=== PATIENT | male | born 1955 | race Two or more races ===

== ENCOUNTER 2021-05-03 13:01 | Emergency (ER) | payer OTHER ==
[~2021-05-03] VITALS: Ht 165.1 cm; Wt 90.7 kg
[2021-05-03] MEDS ORDERED: DOCUSATE SOD 100 MG CAP PO ONE (13:15)
[2021-05-03 14:15] LABS: Basophils # (auto) 0.3 10 ^3/uL (0-0.2); Eosinophils # (auto) 0.3 10 ^3/uL (0-0.8); Mean Corpuscular Hemoglobin 24.8 pg (28.0-32.0); Mean Corpuscular Hgb Conc. 31.6 g/dL (32.0-36.0); Nucleated Red Blood Cells % 0.1 %
[2021-05-03 14:16] LABS: Basophils % (auto) 2.2 % (0.0-2.0); Eosinophils % (auto) 2.7 % (0.0-7.0); Hematocrit 30.6 % (41.0-53.0); Hemoglobin 9.7 g/dL (13.5-17.5); Lymphocytes % (auto) 26.2 % (10.0-50.0); Mean Corpuscular Volume 78.6 fL (80.0-100.0); Monocytes # (auto) 0.9 10 ^3/uL (0-1.3); Monocytes % (auto) 7.8 % (0.0-12.0); Neutrophils % (auto) 61.1 % (37.0-80.0); Red Cell Distribution Width 17.3 % (11.8-14.3); White Blood Cell 11.4 10^3/uL (4.4-10.8)
[2021-05-03 14:29] LABS: Albumin 2.9 g/dL (3.4-5.0); BUN/Creatinine Ratio 24.4; Calcium 8.3 mg/dL (8.5-10.1); Potassium 3.9 mmol/L (3.5-5.1)
[2021-05-03 14:34] LABS: Bilirubin, Total 0.1 mg/dL (0.2-1.0); Total Protein 6.3 g/dL (6.4-8.2)
[2021-05-03 14:58] LABS: Urine Amorphous Crystal FEW /hpf (None Seen); Urine Bacteria NONE SEEN /hpf (None Seen); Urine Blood Negative /uL (Negative); Urine Specific Gravity 1.021 (1.001-1.035); Urine WBC 1 /hpf (0 - 3)
[2021-05-03 15:53] VITALS: BP 135/65
== END 2021-05-03 15:22 | disposition home or self-care (01) ==
LOC: ER 13:01
DX: R10.9 Unspecified abdominal pain (principal)
CPT/HCPCS: 36415; 74176; 80053; 81001; 84484; 85025

== ENCOUNTER → 2021-08-13 | Outpatient (CLI) | payer OTHER ==
[2021-08-13 10:00] LABS: BUN/Creatinine Ratio 10.9; Calcium 9.2 mg/dL (8.5-10.1); Potassium 3.1 mmol/L (3.5-5.1)
== END | disposition home or self-care (01) ==
LOC: LAB 09:11
PROVIDERS: ATTEND Internal Medicine
DX: E87.6 Hypokalemia (principal)
CPT/HCPCS: 36415; 80048

== ENCOUNTER → 2021-08-26 | Outpatient (CLI) | payer OTHER ==
[2021-08-26 10:38] LABS: Basophils # (auto) 0.1 10 ^3/uL (0-0.2); Eosinophils # (auto) 0.5 10 ^3/uL (0-0.8); Nucleated Red Blood Cells % 0.1 %; White Blood Cell 6.2 10^3/uL (4.4-10.8)
[2021-08-26 10:41] LABS: Basophils % (auto) 1.2 % (0.0-2.0); Eosinophils % (auto) 7.6 % (0.0-7.0); Hematocrit 35.1 % (41.0-53.0); Hemoglobin 10.8 g/dL (13.5-17.5); Lymphocytes # (auto) 2.6 10 ^3/uL (0.4-5.4); Lymphocytes % (auto) 40.9 % (10.0-50.0); Mean Corpuscular Hemoglobin 24.7 pg (28.0-32.0); Mean Corpuscular Hgb Conc. 30.6 g/dL (32.0-36.0); Mean Corpuscular Volume 80.6 fL (80.0-100.0); Monocytes # (auto) 0.9 10 ^3/uL (0-1.3); Monocytes % (auto) 15.1 % (0.0-12.0); Neutrophils # (auto) 2.2 10 ^3/uL (1.6-8.6); Neutrophils % (auto) 35.2 % (37.0-80.0); Red Blood Cells 4.36 10^6/uL (4.5-5.90); Red Cell Distribution Width 24.6 % (11.8-14.3)
[2021-08-26 11:10] LABS: Albumin 3.3 g/dL (3.4-5.0); Bilirubin, Direct 0.1 mg/dL (0-0.2); Bilirubin, Total 0.4 mg/dL (0.2-1.0); Total Protein 7.5 g/dL (6.4-8.2)
== END | disposition home or self-care (01) ==
LOC: LAB 09:18
PROVIDERS: ATTEND Internal Medicine
DX: D64.9 Anemia, unspecified (principal); E11.9 Type 2 diabetes mellitus without complications; E87.4 Mixed disorder of acid-base balance; N40.0 Benign prostatic hyperplasia without lower urinary tract symptoms; E78.5 Hyperlipidemia, unspecified; I10 Essential (primary) hypertension
CPT/HCPCS: 36415; 80076; 82043; 84443; 85025

== ENCOUNTER → 2021-11-17 | Outpatient (CLI) | payer OTHER | END | disposition home or self-care (01) | LOC: LAB 07:50 | PROVIDERS: ATTEND Internal Medicine | DX: E11.9 Type 2 diabetes mellitus without complications (principal); D64.9 Anemia, unspecified; M17.12 Unilateral primary osteoarthritis, left knee | CPT/HCPCS: 36415; 83036; 84443; 84550; 85652; 86038; 86431 ==

== ENCOUNTER → 2022-01-14 | Day surgery (SDC) | payer OTHER, MEDICAID ==
[~2022-01-14] VITALS: Ht 165.1 cm; Wt 81.6 kg
[~2022-01-14] MED LIST: CALC667C5 GT; ENAL5TAB10 PO; FERRPOW47 XX; FURO1TAB33 PO; GLUC1CAP12 PO; LEV50T PO; LIDOCAINE VISCOUS 2% 15ML UD ONE; MIDAZOLAM HCL 5 MG/ML-1ML VIAL ONE; PANT40T PO; TAMS0.4C36 PO; VALS40TA2 PO; fentaNYL CITRATE 100 MCG/2 ML VL ONE
[2022-01-14] MEDS: diphenhdrAMINE HCL 50 MG/1 ML VL ONE ×2 (10:46→10:48)
[2022-01-14 11:40] VITALS: BP 115/57
== END | disposition home or self-care (01) ==
LOC: GI 09:10
PROVIDERS: ATTEND Internal Medicine Gastroenterology
DX: D64.9 Anemia, unspecified (principal); K44.9 Diaphragmatic hernia without obstruction or gangrene; K29.50 Unspecified chronic gastritis without bleeding; K31.89 Other diseases of stomach and duodenum; E11.9 Type 2 diabetes mellitus without complications; E03.9 Hypothyroidism, unspecified; Z79.890 Hormone replacement therapy; Z79.84 Long term (current) use of oral hypoglycemic drugs
CPT/HCPCS: 43239; 82962; 88305; 88342; J1200; J2250; J3010; J7030

== ENCOUNTER 2022-01-19 12:10 | Day surgery (SDC) | payer OTHER, MEDICAID ==
[2022-01-12 11:17] LABS: Basophils # (auto) 0 10 ^3/uL (0-0.2); Basophils % (auto) 0.9 % (0.0-2.0); Eosinophils # (auto) 0.2 10 ^3/uL (0-0.8); Eosinophils % (auto) 4.3 % (0.0-7.0); Hematocrit 37.7 % (41.0-53.0); Hemoglobin 12.7 g/dL (13.5-17.5); Lymphocytes # (auto) 2.3 10 ^3/uL (0.4-5.4); Lymphocytes % (auto) 41.3 % (10.0-50.0); Mean Corpuscular Hemoglobin 29.4 pg (28.0-32.0); Mean Corpuscular Hgb Conc. 33.6 g/dL (32.0-36.0); Mean Corpuscular Volume 87.6 fL (80.0-100.0); Monocytes # (auto) 0.4 10 ^3/uL (0-1.3); Monocytes % (auto) 7.8 % (0.0-12.0); Neutrophils # (auto) 2.5 10 ^3/uL (1.6-8.6); Neutrophils % (auto) 45.7 % (37.0-80.0); Nucleated Red Blood Cells % 0.2 %; Red Blood Cells 4.31 10^6/uL (4.5-5.90); Red Cell Distribution Width 13.9 % (11.8-14.3); White Blood Cell 5.5 10^3/uL (4.4-10.8)
[2022-01-12 11:28] LABS: INR 1.05 (0.9-1.15); Partial Thromboplastin Time 28.4 sec (24.6-33.4)
[2022-01-12 11:36] LABS: Albumin 3.5 g/dL (3.4-5.0); BUN/Creatinine Ratio 21.6; Bilirubin, Total 0.3 mg/dL (0.2-1.0); Calcium 8.9 mg/dL (8.5-10.1); Potassium 4.1 mmol/L (3.5-5.1); Total Protein 7.3 g/dL (6.4-8.2)
[~2022-01-19] VITALS: Ht 165.1 cm; Wt 81.6 kg
[~2022-01-19 12:10] MED LIST changes: -LIDOCAINE VISCOUS 2% 15ML UD ONE; -MIDAZOLAM HCL 5 MG/ML-1ML VIAL ONE; -fentaNYL CITRATE 100 MCG/2 ML VL ONE
[2022-01-19] MEDS ORDERED: MIDAZOLAM HCL 5 MG/ML-1ML VIAL ONE (12:21)
[2022-01-19] MEDS ORDERED: diphenhdrAMINE HCL 50 MG/1 ML VL ONE (12:21)
[2022-01-19] MEDS ORDERED: SODIUM CHLORIDE LOCK 10 ML ONE (12:21)
[2022-01-19] MEDS ORDERED: fentaNYL CITRATE 100 MCG/2 ML VL ONE (12:22)
[2022-01-19 14:24] VITALS: BP 101/47
== END 2022-01-19 14:31 | disposition home or self-care (01) ==
LOC: GI 12:10
PROVIDERS: ATTEND Internal Medicine Gastroenterology
DX: K59.00 Constipation, unspecified (principal); D64.9 Anemia, unspecified; K63.5 Polyp of colon; K64.0 First degree hemorrhoids; Z20.822 Contact with and (suspected) exposure to COVID-19; I10 Essential (primary) hypertension; E11.9 Type 2 diabetes mellitus without complications; Z79.899 Other long term (current) drug therapy; Z79.84 Long term (current) use of oral hypoglycemic drugs
CPT/HCPCS: 36415; 45385; 80053; 82962; 85025; 85610; 85730; J1200; J2250; J3010; J7030; U0003; 99152; 99153

== ENCOUNTER → 2022-01-24 | Outpatient (CLI) | payer OTHER, MEDICAID | END | disposition home or self-care (01) | LOC: LAB 07:42 | PROVIDERS: ATTEND Internal Medicine | DX: E03.9 Hypothyroidism, unspecified (principal) | CPT/HCPCS: 36415; 84443 ==

== ENCOUNTER → 2022-07-26 | Outpatient (CLI) | payer OTHER ==
[~2022-07-26] MED LIST changes: -ENAL5TAB10 PO; +ENAL5TAB22 PO
== END | disposition home or self-care (01) ==
LOC: LAB 07:39
PROVIDERS: ATTEND Internal Medicine
DX: E11.9 Type 2 diabetes mellitus without complications (principal); E03.9 Hypothyroidism, unspecified
CPT/HCPCS: 36415; 83036; 84443

== ENCOUNTER 2022-08-24 13:45 | Inpatient (IN) | payer OTHER, MEDICAID ==
[~2022-08-24] VITALS: Ht 165.1 cm; Wt 86.3 kg
[2022-08-24] MEDS ORDERED: SODIUM CHLORIDE 0.9% 1,000 ML IV ONE (14:00)
[2022-08-24 14:48] LABS: Basophils # (auto) 0.1 10 ^3/uL (0-0.2); Basophils % (auto) 0.4 % (0.0-2.0); Eosinophils # (auto) 0.2 10 ^3/uL (0-0.8); Eosinophils % (auto) 1.5 % (0.0-7.0); Hematocrit 44.1 % (41.0-53.0); Hemoglobin 14.3 g/dL (13.5-17.5); Lymphocytes # (auto) 2.2 10 ^3/uL (0.4-5.4); Lymphocytes % (auto) 15.2 % (10.0-50.0); Mean Corpuscular Hemoglobin 30.7 pg (28.0-32.0); Mean Corpuscular Hgb Conc. 32.5 g/dL (32.0-36.0); Mean Corpuscular Volume 94.3 fL (80.0-100.0); Monocytes # (auto) 1.1 10 ^3/uL (0-1.3); Monocytes % (auto) 7.9 % (0.0-12.0); Neutrophils # (auto) 10.6 10 ^3/uL (1.6-8.6); Nucleated Red Blood Cells % 0.2 %; Red Blood Cells 4.68 10^6/uL (4.5-5.90); Red Cell Distribution Width 13.9 % (11.8-14.3); White Blood Cell 14.2 10^3/uL (4.4-10.8)
[2022-08-24 15:00] LABS: INR 1.23 (0.9-1.15); Partial Thromboplastin Time 28.6 SEC (24.5-34.5)
[2022-08-24 15:32] LABS: Albumin 3.2 g/dL (3.4-5.0); Magnesium 2.5 mg/dL (1.6-2.6); Potassium 4.1 mmol/L (3.5-5.1)
[2022-08-24 15:36] LABS: BUN/Creatinine Ratio 27.2 (10.0-20.0); Bilirubin, Total 0.4 mg/dL (0.2-1.0); Total Protein 6.2 g/dL (6.4-8.2)
[2022-08-24] MEDS: SODIUM CHLORIDE 0.9% 1,000 ML IV SCH (16:15)
[2022-08-24] MEDS ORDERED: DEXTROSE (50%) 50ML SYRG IV PRN (16:15)
[2022-08-24] MEDS ORDERED: DOCUSATE SOD 100 MG CAP PO PRN (16:15)
[2022-08-24] MEDS ORDERED: ONDANSETRON HCL 4 MG/2 ML VIAL IV PRN (16:15)
[2022-08-24] MEDS ORDERED: MORPHINE SULFATE INJ 2 MG/ml SYRG IV PRN (16:30)
[2022-08-24] MEDS: InsuLIN REG 1unit/0.01ml Soln (100units/ml) SC SCH ×2 (18:00→23:22)
[2022-08-24] MEDS: ACCU-CHEK COMFORT CURVE STRIP VI SCH ×2 (18:00→23:21)
[2022-08-24] MEDS ORDERED: ACETAMINOPHEN 325 MG TAB PO PRN (18:45)
[2022-08-24 19:48] LABS: Urine Bacteria NONE SEEN /hpf (None Seen); Urine Blood Negative /uL (Negative); Urine Mucus FEW (None Seen); Urine Specific Gravity 1.018 (1.001-1.035); Urine WBC 3 /hpf (0 - 3)
[2022-08-24] MEDS ORDERED: LORazepam 2MG/ML-1ML VIAL IV PRN (20:30)
[2022-08-24] MEDS ORDERED: LORazepam 0.5 MG TAB PO ONE (21:30)
[2022-08-24 22:30] VITALS: BP 120/82
[2022-08-24 22:48] VITALS: BP 120/82
[2022-08-24] MEDS: metroNIDAZOLE 500MG/100ML 100 ML IV SCH (23:21)
[2022-08-24 23:37] LABS: Alcohol, Urine < 3.0 mg/dL (0-10); Sodium Urine 89 mmol/L (40-220)
[2022-08-24 23:39] LABS: Amphetamine Screen, Urine NEGATIVE (NEGATIVE); Barbiturate Scree,Urine NEGATIVE (NEGATIVE); Benzodiazephine Screen, Urine NEGATIVE (NEGATIVE); Cannabinoid Screen, Urine NEGATIVE (NEGATIVE); Cocaine Screen, Urine NEGATIVE (NEGATIVE); Creatinine, Urine 106 mg/dL (30.0-125.0); Opiate Scree,Urine NEGATIVE (NEGATIVE); Phencyclidine Screen, Urine NEGATIVE (NEGATIVE)
[2022-08-25] MEDS ORDERED: TEMAZEPAM 15 MG CAP PO ONE (00:15)
[2022-08-25] MEDS ORDERED: traMADol HCL 50 MG TAB PO ONE (00:30)
[2022-08-25] MEDS: SODIUM CHLORIDE 0.9% 1,000 ML IV SCH ×3 (00:35→17:15)
[2022-08-25 01:00] VITALS: BP 109/52
[2022-08-25 04:48] VITALS: BP 124/67
[2022-08-25] MEDS: InsuLIN REG 1unit/0.01ml Soln (100units/ml) SC SCH ×3 (05:12→18:00)
[2022-08-25] MEDS: ACCU-CHEK COMFORT CURVE STRIP VI SCH ×3 (05:12→18:00)
[2022-08-25] MEDS: metroNIDAZOLE 500MG/100ML 100 ML IV SCH ×2 (05:50→14:00)
[2022-08-25 06:34] LABS: Basophils # (auto) 0 10 ^3/uL (0-0.2); Basophils % (auto) 0.3 % (0.0-2.0); Eosinophils # (auto) 0.1 10 ^3/uL (0-0.8); Eosinophils % (auto) 1.3 % (0.0-7.0); Hematocrit 38.4 % (41.0-53.0); Lymphocytes # (auto) 1.1 10 ^3/uL (0.4-5.4); Lymphocytes % (auto) 16.2 % (10.0-50.0); Mean Corpuscular Hemoglobin 31.4 pg (28.0-32.0); Mean Corpuscular Hgb Conc. 33.9 g/dL (32.0-36.0); Mean Corpuscular Volume 92.7 fL (80.0-100.0); Monocytes # (auto) 0.8 10 ^3/uL (0-1.3); Monocytes % (auto) 11.1 % (0.0-12.0); Neutrophils % (auto) 71.1 % (37.0-80.0); Red Blood Cells 4.15 10^6/uL (4.5-5.90); Red Cell Distribution Width 13.6 % (11.8-14.3)
[2022-08-25 06:40] LABS: Albumin 2.8 g/dL (3.4-5.0); Calcium 7.6 mg/dL (8.5-10.1); Potassium 3.3 mmol/L (3.5-5.1)
[2022-08-25 06:44] LABS: BUN/Creatinine Ratio 24.7 (10.0-20.0); Bilirubin, Total 0.7 mg/dL (0.2-1.0); Total Protein 5.8 g/dL (6.4-8.2)
[2022-08-25 08:32] VITALS: BP 99/62
[2022-08-25] MEDS ORDERED: cefTRIAXone 1GM/50ML D5W 50 ML IV SCH (09:00)
[2022-08-25] MEDS ORDERED: ASPirin 81 mg TAB PO SCH (10:00)
[2022-08-25] MEDS ORDERED: PANTOPRAZOLE 40 MG/10 ML VIAL INJ IV SCH (10:00)
[2022-08-25 10:04] LABS: Hepatitis C Antibody Negative (Negative)
[2022-08-25 13:00] VITALS: BP 129/66
[2022-08-25] MEDS ORDERED: POTASSIUM CHL 20 Meq TABLET PO ONE (13:15)
[2022-08-25] MEDS ORDERED: LEVO500T91 PO (15:22)
[2022-08-25] MEDS ORDERED: MET500T PO (15:22)
[2022-08-25 17:00] VITALS: BP 133/71
== END 2022-08-25 18:58 | disposition home or self-care (01) | DRG 391 ==
LOC: ER 13:45 → EDBD 13:45 → OVERFLOW 16:17 → WEST WING 21:37
PROVIDERS: ADMIT Nurse Practitioner Family; ATTEND Internal Medicine
DX: K52.9 Noninfective gastroenteritis and colitis, unspecified (principal); G92.9 Unspecified toxic encephalopathy; E44.1 Mild protein-calorie malnutrition; N17.9 Acute kidney failure, unspecified; E86.0 Dehydration; I95.9 Hypotension, unspecified; K76.0 Fatty (change of) liver, not elsewhere classified; F17.200 Nicotine dependence, unspecified, uncomplicated; F41.9 Anxiety disorder, unspecified; Z20.822 Contact with and (suspected) exposure to COVID-19; N18.9 Chronic kidney disease, unspecified; I12.9 Hypertensive chronic kidney disease with stage 1 through stage 4 chronic kidney disease, or unspecified chronic kidney disease; E11.22 Type 2 diabetes mellitus with diabetic chronic kidney disease; Z79.82 Long term (current) use of aspirin; Z68.31 Body mass index [BMI] 31.0-31.9, adult
CPT/HCPCS: 36415; 70450; 70551; 71045; 72125; 74176; 80053; 80307; 80320; 81001; 82570; 82962; 83605; 83735; 84300; 85025; 85610; 85730; 86803; 87045; 87340; 87426; 87427; 87493; 93005; 93306; 93886; 96360; 96361; 97163; C9113; G0378; J0696; J2405; J3490

== ENCOUNTER → 2022-09-02 | Outpatient (CLI) | payer OTHER ==
[~2022-09-02] MED LIST changes: -ENAL5TAB22 PO; -FURO1TAB33 PO; +LEVO500T91 PO; +MET500T PO; -VALS40TA2 PO
[2022-09-02 09:08] LABS: Basophils # (auto) 0.1 10 ^3/uL (0-0.2); Basophils % (auto) 0.8 % (0.0-2.0); Eosinophils # (auto) 0.1 10 ^3/uL (0-0.8); Eosinophils % (auto) 1.4 % (0.0-7.0); Hematocrit 40.3 % (41.0-53.0); Hemoglobin 13.6 g/dL (13.5-17.5); Lymphocytes # (auto) 2.2 10 ^3/uL (0.4-5.4); Lymphocytes % (auto) 27.7 % (10.0-50.0); Mean Corpuscular Hgb Conc. 33.7 g/dL (32.0-36.0); Monocytes # (auto) 0.8 10 ^3/uL (0-1.3); Monocytes % (auto) 9.6 % (0.0-12.0); Neutrophils # (auto) 4.8 10 ^3/uL (1.6-8.6); Neutrophils % (auto) 60.5 % (37.0-80.0); Nucleated Red Blood Cells % 0.1 %; Red Blood Cells 4.38 10^6/uL (4.5-5.90); Red Cell Distribution Width 13.6 % (11.8-14.3); White Blood Cell 7.9 10^3/uL (4.4-10.8)
[2022-09-02 09:18] LABS: Urine Bacteria FEW /hpf (None Seen); Urine Blood Negative /uL (Negative); Urine Specific Gravity 1.017 (1.001-1.035); Urine WBC <1 /hpf (0 - 3)
[2022-09-02 09:48] LABS: Potassium 4.7 mmol/L (3.5-5.1)
[2022-09-02 09:55] LABS: Albumin 3.2 g/dL (3.4-5.0); BUN/Creatinine Ratio 22.8 (10.0-20.0); Bilirubin, Total 0.3 mg/dL (0.2-1.0); Calcium 8.4 mg/dL (8.5-10.1)
== END | disposition home or self-care (01) ==
LOC: LAB 08:37
PROVIDERS: ATTEND Internal Medicine
DX: E11.9 Type 2 diabetes mellitus without complications (principal); E03.9 Hypothyroidism, unspecified; K29.50 Unspecified chronic gastritis without bleeding
CPT/HCPCS: 36415; 80053; 81001; 85025

== ENCOUNTER 2022-11-28 06:16 | Emergency (ER) | payer MEDICAID, OTHER ==
[~2022-11-28] VITALS: Ht 165.1 cm; Wt 90.0 kg
[2022-11-28 06:27] VITALS: BP 148/51; PULSE 60; RESP 12; TEMP 96.5
[2022-11-28 07:01] VITALS: O2SAT 97
[2022-11-28] MEDS ORDERED: ACETAMINOPHEN 500 MG TAB PO ONE (08:00)
[2022-11-28] MEDS ORDERED: IBUP-1456 PO (08:21)
== END 2022-11-28 08:42 | disposition home or self-care (01) ==
LOC: ER 06:16
DX: S52.614A Nondisplaced fracture of right ulna styloid process, initial encounter for closed fracture (principal); E11.9 Type 2 diabetes mellitus without complications; I10 Essential (primary) hypertension; Z79.899 Other long term (current) drug therapy; W01.0XXA Fall on same level from slipping, tripping and stumbling without subsequent striking against object, initial encounter; Y93.89 Activity, other specified; Y92.89 Other specified places as the place of occurrence of the external cause; Y99.8 Other external cause status
CPT/HCPCS: 29125; 73110

== ENCOUNTER → 2023-01-23 | Outpatient (CLI) | payer OTHER ==
[~2023-01-23] MED LIST changes: +IBUP-1456 PO
[2023-01-23 11:09] LABS: Anion Gap 6 (5-15); Carbon Dioxide 30 mmol/L (20-30); Chloride 106 mmol/L (98-107); Potassium 4.3 mmol/L (3.5-5.1); Sodium 142 mmol/L (136-145)
[2023-01-23 11:10] LABS: Calcium 9.7 mg/dL (8.5-10.1)
[2023-01-23 11:11] LABS: Creatinine, Urine 89.31 mg/dL (30.0-125.0)
[2023-01-23 11:15] LABS: BUN/Creatinine Ratio 14.3 (10.0-20.0); Blood Urea Nitrogen 14 mg/dL (9-23); Glucose 99 mg/dL (74-106)
== END | disposition home or self-care (01) ==
LOC: LAB 09:32
PROVIDERS: ATTEND Internal Medicine
DX: E11.9 Type 2 diabetes mellitus without complications (principal)
CPT/HCPCS: 36415; 80048; 82043; 82570

== ENCOUNTER → 2023-02-22 | Outpatient (CLI) | payer OTHER ==
[2023-02-22 09:31] LABS: Erythrocyte Sedimentation Rate 7 mm/hr (0-20)
[2023-02-23 08:06] LABS: RPR Non Reactive (Non Reactive)
== END | disposition home or self-care (01) ==
LOC: LAB 08:30
PROVIDERS: ATTEND Internal Medicine
DX: D64.9 Anemia, unspecified (principal); R90.89 Other abnormal findings on diagnostic imaging of central nervous system
CPT/HCPCS: 36415; 82607; 84443; 85652; 86592

== ENCOUNTER → 2023-08-14 | Outpatient (CLI) | payer MEDICAID ==
[2023-08-14 08:38] LABS: Urine Bacteria None Seen /hpf (None Seen)
[2023-08-14 08:42] LABS: Basophils # (auto) 0.1 10 ^3/uL (0-0.2); Basophils % (auto) 0.9 % (0.0-2.0); Eosinophils # (auto) 0.1 10 ^3/uL (0-0.8); Eosinophils % (auto) 0.9 % (0.0-7.0); Hematocrit 40.8 % (41.0-53.0); Hemoglobin 13.7 g/dL (13.5-17.5); Lymphocytes # (auto) 2.6 10 ^3/uL (0.4-5.4); Lymphocytes % (auto) 32.8 % (10.0-50.0); Mean Corpuscular Hemoglobin 31.1 pg (28.0-32.0); Mean Corpuscular Hgb Conc. 33.6 g/dL (32.0-36.0); Mean Corpuscular Volume 92.4 fL (80.0-100.0); Monocytes # (auto) 0.7 10 ^3/uL (0-1.3); Monocytes % (auto) 8.7 % (0.0-12.0); Neutrophils # (auto) 4.6 10 ^3/uL (1.6-8.6); Neutrophils % (auto) 56.7 % (37.0-80.0); Red Blood Cells 4.41 10^6/uL (4.5-5.90); Red Cell Distribution Width 13.7 % (11.8-14.3); White Blood Cell 8.1 10^3/uL (4.4-10.8)
[2023-08-14 08:58] LABS: INR 1.03 (0.9-1.15); Partial Thromboplastin Time 26.8 SEC (24.5-34.5); Prothrombin Time 10.9 sec (9.3-11.8)
[2023-08-14 09:14] LABS: Alanine Aminotransferase 22 U/L (7-40); Albumin 4.1 g/dL (3.2-4.8); Alkaline Phosphatase 71 U/L (46-116); Anion Gap 5 (5-15); Aspartate Aminotransferase 15 U/L (13-40); BUN/Creatinine Ratio 19.8 (10.0-20.0); Bilirubin, Total 0.3 mg/dL (0.2-1.0); Blood Urea Nitrogen 17 mg/dL (9-23); Calcium 9.6 mg/dL (8.5-10.1); Carbon Dioxide 28 mmol/L (20-30); Chloride 107 mmol/L (98-107); Glucose 115 mg/dL (74-106); Potassium 4.3 mmol/L (3.5-5.1); Sodium 140 mmol/L (136-145); Urine Blood Negative /uL (Negative); Urine Clarity Clear (Clear); Urine Color Light-Yellow (Yellow); Urine Protein, UAD Negative (Negative); Urine Specific Gravity 1.017 (1.001-1.035); Urine Urobilinogen Normal (Negative); Urine WBC 1 /hpf (0 - 3); Urine pH 7.5 (5.0-9.0)
[2023-08-14 09:40] LABS: Creatinine, Urine 56.43 mg/dL (30.0-125.0)
== END | disposition home or self-care (01) ==
LOC: LAB 08:23
PROVIDERS: ATTEND Internal Medicine
DX: Z12.11 Encounter for screening for malignant neoplasm of colon (principal); E11.9 Type 2 diabetes mellitus without complications; C61 Malignant neoplasm of prostate; E55.9 Vitamin D deficiency, unspecified; Z86.2 Personal history of diseases of the blood and blood-forming organs and certain disorders involving the immune mechanism
CPT/HCPCS: 36415; 80053; 81001; 82043; 82270; 82306; 82570; 83036; 84403; 84443; 85025; 85610; 85730

== ENCOUNTER → 2024-02-06 | Outpatient (CLI) | payer MEDICAID ==
[~2024-02-06] MED LIST changes: -LEV50T PO; +LEVO-848 PO; -TAMS0.4C36 PO; +TAMS0.4C39 PO
[2024-02-06 10:41] LABS: Cholesterol 125 mg/dL (< 200); Triglycerides 79 mg/dL (< 150)
[2024-02-06 10:42] LABS: LDL Cholesterol 56 mg/dL (< 100)
[2024-02-06 10:43] LABS: HDL Cholesterol 57 mg/dL (40-59)
== END | disposition home or self-care (01) ==
LOC: LAB 08:57
PROVIDERS: ATTEND Internal Medicine
DX: E11.22 Type 2 diabetes mellitus with diabetic chronic kidney disease (principal); I10 Essential (primary) hypertension
CPT/HCPCS: 36415; 80061; 83036

== ENCOUNTER 2024-05-23 21:39 | Emergency (ER) | payer OTHER ==
[~2024-05-23] VITALS: Ht 165.1 cm; Wt 94.7 kg
[2024-05-24] MEDS: HYDROcodone-ACET 5/325MG TAB PO ONE (00:16)
--- NOTE | 2024-05-24 00:30 | DVH ---
CLINICAL INDICATION: PAIN/IJURY FALL TECHNIQUE: XY L FOREARM XRAY Comparison: None FINDINGS/IMPRESSION: : Comminuted displaced Colles' type distal radial fracture with intra-articular extension. The distal r adioulnar joint is otherwise intact. Soft tissues are unremarkable.
--- NOTE | 2024-05-24 01:29 | ED.PDOC ---
Irma. trauma (HPI) HPI Comments PATIENT SLIPPED ON WATER, LANDING ON HIS LEFT FOREARM. SWELLING IS NOTED. PT HAS NO OTHER COMPLAINTS. DENIES NUMBNESS, WEAKNESS, NECK PAIN, BACK PAIN, NEGATIVE LOC Chief Complaint: Fall Injury Time Seen by MD: 21:44 Primary Care Provider: KANDACE Marcelo notes: Nurses Notes, Medications, Allergies Allergies: Coded Allergies: NO KNOWN ALLERGIES (Unverified , 01/14/22) Home Meds Active Scripts Ibuprofen (Ibuprofen) 800 Mg Tab, 1 TAB PO TID, #30 TAB Prov:KARLY JACOB 11/28/22 Metronidazole (Metronidazole) 500 Mg Tab, 500 MG PO TID for 7 Days, #21 TAB Prov:PREETHI AMADO MD 08/25/22 Levofloxacin Hemihydrate (LEVAQUIN 500 MG) 500 Mg Tab, 500 MG PO DAILY for 7 Days, #7 TAB Prov:PREETHI AMADO MD 08/25/22 Reported Medications Tamsulosin Hcl (Tamsulosin Hcl) 0.4 Mg Cap, 0.4 MG PO DAILY, CAP 01/14/22 Pantoprazole Sodium Sesquihydr (Pantoprazole Sodium) 40 Mg Tab, 40 MG PO DAILY, TAB 01/14/22 Levothyroxine Sodium (SYNTHROID TABLET) 50 Mcg Tb, 50 MCG PO DAILY, TAB 01/14/22 Mnahrhqexmv-Ihphseiguze-Ogx C- (Glucosamine Chondroitin) 1 Cap Cap, 1 CAP PO, CAP 01/14/22 Ferric Sulfate (Ferric Sulfate Hydrate) Sulfate Pow, 1 XX, POW 01/14/22 Calcium Acetate (PHOSLO CAPSULE) 667 Mg Cp, 667 MG GT DAILY, CAP 01/14/22 Information Source: Patient Mode of Arrival: Ambulatory Past Medical History PAST MEDICAL HISTORY: DM, HTN Surgical History: Denies all surgeries Family History Family History: Reviewed,noncontributory to illness Social History Smoker: Non-Smoker Alcohol: Denies ETOH Use Drugs: Denies Drug Use Lives In: Home Constitutional: denies: chills, diaphoresis, fatigue, fever, malaise, sweats, weakness, others EENTM: denies: blurred vision, double vision, ear bleeding, ear discharge, ear drainage, ear pain, ear ringing, eye pain, eye redness, hearing loss, mouth pain, mouth swelling, nasal discharge, nose bleeding, nose congestion, nose pain, photophobia, tearing, throat pain, throat swelling, voice changes, others Respiratory: denies: cough, hemoptysis, orthopnea, SOB at rest, shortness of breath, SOB with excertion, stridor, wheezing, others Cardiovascular: denies: chest pain, dizzy spells, diaphoresis, Dyspnea on exertion, edema, irregular heart beat, left arm pain, lightheadedness, palpitations, PND, syncope, others Gastrointestinal: denies: abdomen distended, abdominal pain, blood streaked bowels, constipated, diarrhea, dysphagia, difficulty swallowing, hematemesis, melena, nausea, poor appetite, poor fluid intake, rectal bleeding, rectal pain, vomiting, others Genitourinary: denies: burning, dysuria, flank pain, frequency, hematuria, in continence, penile discharge, penile sore, pain, testicle pain, testicle swelling, urgency, others Neurological: denies: dizziness, fainting, headache, left sided numbness, left sided weakness, numbness, paresthesia, pre-existing deficit, right sided numbness, right sided weakness, seizure, speech problems, tingling, tremors, weakness, others Musculoskeletal: reports: others (LEFT WRIST PAIN); denies: back pain, gout, joint pain, joint swelling, muscle pain, muscle stiffness, neck pain Integumetry: denies: bruises, change in color, change in hair/nails, dryness, laceration, lesions, lumps, rash, wounds, others Allergic/Immunocompromised: denies: Difficulty Healing, Frequent Infections, Hives, Itching, others Hematologic/Lymphatic: denies: anemia, blood clots, easy bleeding, easy bruising, swollen glands, others Endocrine: denies: excessive hunger, excessive sweating, excessive thirst, excessive urination, flushing, intolerance to cold, intolerance to heat, unexplained weight gain, unexplained weight loss, others Psychiatric: denies: anxiety, bipolar disorder, depression, hopeless, panic d isorder, schizophrenia, sleepless, suicidal, others Physical Exam General Appearance: No Apparent Distress, Normal HEENT: Pharynx Normal Neck: Full Range of Motion, Non-Tender Respiratory: Lungs Clear, No Respiratory Distress, Normal Breath Sounds Cardiovascular: No Murmur, Normal Peripheral Pulses, Regular Rate/Rhythm Breast Exam: Deferred Gastrointestinal: Non Tender, Soft Genitalia: Deferred Pelvic: Deferred Rectal: Deferred Extremities: Normal capillary refill, Normal inspection, Normal range of motion, Non-tender, No pedal edema Musculoskeletal : Location: Left Extremity Location: Wrist (MODERATE TENDERNESS ON PALPATION LEFT WRIST MEDIAL POSTERIOR. NOTED EDEMA WITHOUT ABRASIONS, LESIONS, LACERATIONS TRACE ECCHYMOSIS. STRENGTH SENSORY AND MOTION INTACT POSITIVE RADIAL PULSE) Apperance: Normal Neurologic: Alert, assistant corporate secretary II-XII nml as Tested, No Motor Deficits, Normal Affect, Normal Mood, No Sensory Deficits Cerebellar Function: Normal Reflexes: Normal Skin: Dry, Normal Color, Warm Lymphatic: No Adenopathy Was a procedure done? Was a procedure done?: Yes Sedation Sedation?: No Informed consent obtained: Yes Reduction Indication: Fracture Sedation: Radial Intra-articular anesthetic yokasta: No Post-reduction x-ray show: Reduction, Good Alignment Informed consent obtained: Yes Risks/benefits/alt described: Yes Notes TOLERATED VERY WELL NOTED NO PAIN DURING REDUCTION Differential Diagnosis Multiple Trauma: Fractures, Contusion, Hematoma, Laceration X-Ray, Labs, Meds, VS Vital Signs Date Time Temp Pulse Resp B/P (MAP) Pulse Ox O2 Delivery O2 Flow Rate FiO2 05/24/24 02:16 83 16 97 Room Air* 0 21 05/24/24 02:16 98.4 86 16 130/82 (98) 96 98.4 05/23/24 21:50 97.8 62 18 131/68 (89) 95 97.8 X-Ray, Labs, Meds, VS Comment SEE PROCEDURE NOTE. PATIENT PLACED IN SUGAR-TONG SPLINT. ARM SLING PROVIDED. PATIENT REFUSED MED PAIN MEDICATIONS. ADVISED TO FOLLOW UP WITH HIS PCP FOR REFERRAL TO [facility]TH[facility] IN 1-2 DAYS KEEP SPLINT ON UNTIL PATIENT FOLLOWS UP. ER RETURN PRECAUTIONS GIVEN PATIENT INDICATES UNDERSTANDING AGREES WITH DISCHARGE PLAN OF CARE. Time of 1ST Reevaluation: : Reevaluation 1ST: Improved Patient Education/Counseling: Diagnosis, Treatment, Prognosis, Need For Follow Up Family Education/Counseling: No Family Present Departure 1 Departure Time of Disposition: Impression: Primary Impression: Ulna styloid fracture, closed Qualified Codes: S52.615A - Nondisplaced fracture of left ulna styloid process, initial encounter for closed fracture Additional Impression: Fracture of distal shaft of radius with dislocation of head of ulna Disposition: HOME / SELF CARE / HOMELESS Condition: Stable Discharged With: Self Critical Care Note Critical Care Time?: No Stability Stability form required: ZACKERY Washburn May 24, 2024 01:29
--- NOTE | 2024-05-24 01:58 | DVH ---
CLINICAL INDICATION: POST REDUCTION TECHNIQUE: XY L WRIST 3+ VIEW XRAY Comparison: XY R WRIST 3+ VIEW XRAY on DOS: 11/28/22 FINDINGS/IMPRESSION: : Cast material partially obscures detail. Stable appearance of partially comminuted moderately displac ed Colles' type distal radial fracture with intra-articular extension. Ulnar styloid process fracture noted.
[2024-05-24 02:16] VITALS: BP 130/82; PULSE 83; RESP 16; TEMP 98.4; O2SAT 97
== END 2024-05-24 02:47 | disposition home or self-care (01) ==
LOC: ER 21:39
DX: S52.612A Displaced fracture of left ulna styloid process, initial encounter for closed fracture (principal); S52.392A Other fracture of shaft of radius, left arm, initial encounter for closed fracture; W01.0XXA Fall on same level from slipping, tripping and stumbling without subsequent striking against object, initial encounter; Y93.89 Activity, other specified; Y92.89 Other specified places as the place of occurrence of the external cause; Y99.8 Other external cause status
CPT/HCPCS: 25605; 25650; 73090; 73110

== ENCOUNTER 2024-05-29 08:46 | Emergency (ER) | payer OTHER ==
[~2024-05-29] VITALS: Ht 165.1 cm; Wt 93.5 kg
[2024-05-29 09:13] VITALS: BP 154/76; PULSE 72; RESP 18; TEMP 97.5; O2SAT 98
--- NOTE | 2024-05-29 10:04 | ED.PDOC ---
Musculoskeletal HPI Comments This is a pleasant 69 year old male that presents for follow up. Was recently seen here for Nondisplaced fracture of left ulna styloid process, initial encounter for closed fracture Reports pressure throughout the splint Distal sensation intact Chief Complaint: Upper Extremity Time Seen by MD: 08:56 Primary Care Provider: KANDACE Reviewed Notes: Nurses Notes, Medications, Allergies Allergies: Coded Allergies: NO KNOWN ALLERGIES (Unverified , 01/14/22) Home Meds Active Scripts Ibuprofen (Ibuprofen) 800 Mg Tab, 1 TAB PO TID, #30 TAB Prov:KARLY JACOB 11/28/22 Metronidazole (Metronidazole) 500 Mg Tab, 500 MG PO TID for 7 Days, #21 TAB Prov:PREETHI AMADO MD 08/25/22 Levofloxacin Hemihydrate (LEVAQUIN 500 MG) 500 Mg Tab, 500 MG PO DAILY for 7 Days, #7 TAB Prov:PREETHI AMADO MD 08/25/22 Reported Medications Tamsulosin Hcl (Tamsulosin Hcl) 0.4 Mg Cap, 0.4 MG PO DAILY, CAP 01/14/22 Pantoprazole Sodium Sesquihydr (Pantoprazole Sodium) 40 Mg Tab, 40 MG PO DAILY, TAB 01/14/22 Levothyroxine Sodium (SYNTHROID TABLET) 50 Mcg Tb, 50 MCG PO DAILY, TAB 01/14/22 Dfydugplkrd-Ditmdcpuojm-Cee C- (Glucosamine Chondroitin) 1 Cap Cap, 1 CAP PO, CAP 01/14/22 Ferric Sulfate (Ferric Sulfate Hydrate) Sulfate Pow, 1 XX, POW 01/14/22 Calcium Acetate (PHOSLO CAPSULE) 667 Mg Cp, 667 MG GT DAILY, CAP 01/14/22 Information Source: Patient Mode of Arrival: Ambulatory Past Medical History PAST MEDICAL HISTORY: DM, HTN, Denies Surgical History: Denies all surgeries Family History Family History: Reviewed,noncontributory to illness Social History Smoker: Non-Smoker Alcohol: Denies ETOH Use Drugs: Denies Drug Use Lives In: Home All Other Systems: Reviewed and Negative (per hpi) Physical Exam General Appearance: No Apparent Distress, Normal HEENT: Normal ENT Inspection, Pharynx Normal, TMs Normal Neck: Full Range of Motion, Non-Tender, Normal, Normal Inspection Respiratory: Chest Non-Tender, Lungs Clear, No Accessory Muscle Use, No Respiratory Distress, Normal Breath Sounds Cardiovascular: No Murmur, No Gallop, Regular Rate/Rhythm Breast Exam: Deferred Gastrointestinal: No Organomegaly, Non Tender, No Pulsatile Mass, Normal Bowel Sounds, Soft Genitalia: Deferred Pelvic: Deferred Rectal: Deferred Extremities: No calf tenderness, Normal capillary refill, Normal inspection, Normal range of motion, Non-tender, No pedal edema Musculoskeletal : Location: Left Extremity Location: Arm (Splint intact. radial pulse 2+. Cap refill < 3 sec. distal sensation intact) Apperance: Normal Neurologic: Alert, No Motor Deficits, Normal Affect, Normal Mood, No Sensory Deficits Cerebellar Function: Normal Reflexes: Normal Skin: Dry, Normal Color, Warm Lymphatic: No Adenopathy Was a procedure done? Was a procedure done?: No Differential Diagnosis EXT Differential Diagnosis: Fracture X-Ray, Labs, Meds, VS Vital Signs Date Time Temp Pulse Resp B/P (MAP) Pulse Ox O2 Delivery O2 Flow Rate FiO2 05/29/24 09:13 72 18 98 Room Air 05/29/24 09:13 97.5 72 18 154/76 (102) 98 97.5 05/29/24 08:52 97.5 72 18 154/76 (102) 98 97.5 X-Ray, Labs, Meds, VS Comment Pt does not currently demonstrate complications such as compartment syndrome, arterial/nerve injury. Interventions: fracture re immobilized and pt reported significant improvement Distal neuro sensation intact on re-evaluation Time of 1ST Reevaluation: 10:01 Reevaluation 1ST: Improved Patient Education/Counseling: Diagnosis, Treatment Family Education/Counseling: Diagnosis, Treatment Departure 1 Departure Time of Disposition: 10:01 Impression: Primary Impression: Ulna styloid fracture, closed Qualified Codes: S52.615S - Nondisplaced fracture of left ulna styloid process, sequela Disposition: 01 HOME / SELF CARE / HOMELESS Condition: Stable Critical Care Note Critical Care Time?: No Stability Stability form required: No Heart Score Heart Score: Heart Score Response (Comments) Value History N/A 0 EKG N/A 0 Age N/A 0 Risk Factors N/A 0 Troponin N/A 0 Total 0 [employer] May 29, 2024 10:04
== END 2024-05-29 10:10 | disposition home or self-care (01) ==
LOC: ER 08:46
DX: S52.615D Nondisplaced fracture of left ulna styloid process, subsequent encounter for closed fracture with routine healing (principal); E11.9 Type 2 diabetes mellitus without complications; I10 Essential (primary) hypertension; Z79.899 Other long term (current) drug therapy; Z79.1 Long term (current) use of non-steroidal anti-inflammatories (NSAID); Z79.890 Hormone replacement therapy; X58.XXXD Exposure to other specified factors, subsequent encounter
CPT/HCPCS: 29125